=== PATIENT | female | born 1960 | race African-American/Black ===

== ENCOUNTER 2022-05-17 12:11 | Emergency (ER) | payer MEDICAID ==
[~2022-05-17] VITALS: Ht 177.8 cm; Wt 64.0 kg
[2022-05-17] MEDS: ALBUTEROL (0.083%) 2.5MG/3ML NEB HHN STA ×2 (12:18→13:21)
[2022-05-17] MEDS: IPRATROPIUM BROMIDE (0.02%) 0.5MG/2.5ML NEB HHN STA ×2 (12:18→13:21)
[2022-05-17] MEDS ORDERED: METHYLPREDNISOLONE SOD SUCC 125 MG/2 ML VIAL IV STA (12:34)
[2022-05-17 13:33] LABS: BASOPHILS % 0.4 % (0.0-2.0); HEMATOCRIT. 43.8 % (36.0-48.0); LYMPHOCYTES % 26.1 % (20.0-50.0); MEAN CORPUSCULAR VOLUME 93.3 fL (81.0-99.0); MEAN PLATELET VOLUME 7.3 fl (7.4-10.4); MONOCYTES % 10.9 % (2.0-8.0); NEUTROPHILS % 62.6 % (40.0-76.0); PLATELET 146 x1000/uL (130-400); RED BLOOD CELL COUNT 4.69 mill/uL (4.2-5.4); RED CELL DISTRIBUTION WIDTH 12.5 % (11.6-14.6)
[2022-05-17 14:03] LABS: CHLORIDE 101 mEq/L (98-107)
[2022-05-17] MEDS ORDERED: P50 MT (15:50)
[2022-05-17] MEDS ORDERED: ALBU6.7H3 INH (15:50)
[2022-05-17 15:53] VITALS: BP 131/85
== END 2022-05-17 16:00 | disposition home or self-care (01) ==
LOC: ER 12:11
DX: J44.9 Chronic obstructive pulmonary disease, unspecified (principal); F12.10 Cannabis abuse, uncomplicated; F17.210 Nicotine dependence, cigarettes, uncomplicated; Z20.822 Contact with and (suspected) exposure to COVID-19
CPT/HCPCS: 36415; 71045; 80053; 83880; 84484; 85025; 87426; 93005; 94640; 96374; 99285; C9803; J2930; Z7610

== ENCOUNTER 2023-08-29 07:56 | Inpatient (IN) | payer MEDICAID ==
[~2023-08-29] VITALS: Ht 172.7 cm; Wt 80.7 kg
[~2023-08-29 07:56] MED LIST: ALBU6.7H3 INH; P50 MT
[2023-08-29 08:39] LABS: HEMATOCRIT. 48.2 % (36.0-48.0); MEAN CORPUSCULAR HEMOGLOBIN 32.2 pg (28.0-32.0); MEAN CORPUSCULAR HGB CONC 33.2 g/dL (31.0-37.0); MEAN CORPUSCULAR VOLUME 96.8 fL (81.0-99.0); MEAN PLATELET VOLUME 7.1 fl (7.4-10.4); PLATELET 168 x1000/uL (130-400); RED BLOOD CELL COUNT 4.99 mill/uL (4.2-5.4); RED CELL DISTRIBUTION WIDTH 13.1 % (11.6-14.6); WHITE BLOOD COUNT 14.9 x1000/uL (4.5-11.0)
[2023-08-29 08:49] LABS: DIFFERENTIAL COMMENT 1
[2023-08-29] MEDS: METHYLPREDNISOLONE SOD SUCC 125MG/2ML (ACT-O-VIAL) IV STA (08:58)
[2023-08-29] MEDS: SODIUM CHLORIDE 0.9% 1,000 ML IV ONE (09:00)
[2023-08-29] MEDS: ALBUTEROL (0.083%) 2.5MG/3ML NEB HHN STA (09:14)
[2023-08-29 09:15] VITALS: PULSE 100; RESP 26; O2SAT 92
[2023-08-29] MEDS: IPRATROPIUM BROMIDE (0.02%) 0.5MG/2.5ML NEB HHN STA (09:15)
[2023-08-29 09:23] LABS: ALANINE AMINOTRANSFERASE 18 IU/L (10-49); ALBUMIN 4.6 g/dL (3.2-4.8); ASPARTATE AMINOTRANSFERASE 17 IU/L (<34); BILIRUBIN TOTAL 2.6 mg/dL (0.1-1.0); CALCIUM 9.7 mg/dL (8.7-10.4); CARBON DIOXIDE 22 mEq/L (21-32); CHLORIDE 99 mEq/L (98-107); CREATININE 1.2 mg/dL (0.6-1.0); GLUCOSE 127 mg/dL (70-105); POTASSIUM 3.8 mEq/L (3.5-5.1); PROTEIN TOTAL 8.1 g/dL (6.0-8.3); SODIUM 131 mEq/L (136-145); TROPONIN I HIGH SENSITIVITY 10 ng/L (3.0-34); UREA NITROGEN BLOOD 18 mg/dL (9-23)
[2023-08-29 09:25] LABS: PLATELET ESTIMATE NORMAL
[2023-08-29 09:55] LABS: INR 1.3; PROTHROMBIN TIME 13.9 sec (9.6-11.0)
[2023-08-29] MEDS: SODIUM CHLORIDE 0.9% 1000ML BAG (SEPSIS BOLUS) IV ONE (10:47)
[2023-08-29 10:53] LABS: TROPONIN I HIGH SENSITIVITY 10 ng/L (3.0-34)
[2023-08-29] MEDS: LEVOFLOXACIN 500MG PREMIX 100 ML IV ONE (10:57)
[2023-08-29] MEDS ORDERED: IPRATROPIUM/ALBUTEROL 0.5-3(2.5)MG/3ML NEB HHN PRN (12:45)
[2023-08-29] MEDS ORDERED: DOCUSATE SODIUM 100MG CAPSULE PO PRN (12:45)
[2023-08-29] MEDS: LACTATED RINGERS 1,000 ML IV SCH (12:55)
[2023-08-29 12:56] VITALS: BP 121/65; PULSE 100; RESP 20; TEMP 98.4
[2023-08-29 13:42] LABS: BG BASE EXCESS -2.3 mmol/L (-2.0-2.0); BG CARBOXYHEMOGLOBIN 0.1 % (0.5-1.5); BG DEOXYHEMOGLOBIN 1.5 % (0.0-5.0); BG FRACTION INSPIRED OXYGEN 32; BG HCO3 ACT 20.7 mmol/L (22.0-26.0); BG METHEMOGLOBIN 0.3 % (0.0-1.5); BG OXYGEN SATURATION 98.5 % (92.0-98.5); BG OXYHEMOGLOBIN 98.1 % (94.0-97.0); BG PCO2 31.1 mmHg (35.0-45.0); BG PH 7.441 (7.350-7.450); BG SAMPLE SITE RIGHT RADIAL; BG TOTAL HEMOGLOBIN 14.7 g/dL (12.0-18.0); BG VENT MODE NASAL CANNULA
[2023-08-29] MEDS: ASPIRIN 325MG EC TABLET PO SCH (14:09)
[2023-08-29] MEDS: ENOXAPARIN 40MG/0.4ML SYR SUBCUT SCH (14:10)
[2023-08-29] MEDS: FAMOTIDINE 20MG/2ML VIAL IV SCH (14:10)
[2023-08-29 14:22] VITALS: BP 121/65; PULSE 100; RESP 20; TEMP 98.4
[2023-08-29 16:00] VITALS: BP 146/84; PULSE 83; RESP 20; TEMP 97.9
[2023-08-29 16:51] LABS: D-DIMER 2.63 mg/L FEU (<0.50); INR 1.3; PROTHROMBIN TIME 13.8 sec (9.6-11.0)
[2023-08-29 17:37] LABS: HEPATITIS B SURFACE ANTIGEN NEGATIVE (Negative); HEPATITIS C AB NON REACTIVE (Neg) (Negative)
[2023-08-29 20:00] VITALS: BP 117/67; PULSE 84; RESP 20; TEMP 96.7
[2023-08-30] VITALS (10 sets, daily range): BP systolic 118–126; BP diastolic 50–75; PULSE 69–95; RESP 18–25; TEMP 97.2–98.7; O2SAT 93–98
[2023-08-30] MEDS: IPRATROPIUM/ALBUTEROL 0.5-3(2.5)MG/3ML NEB HHN SCH (00:54)
[2023-08-30 02:05] LABS: CLARITY URINE CLEAR (CLEAR); COLOR URINE YELLOW (YELLOW); GLUCOSE URINE NEGATIVE (NEGATIVE); KETONES URINE NEGATIVE (NEGATIVE); LEUKOCYTE ESTERASE URINE NEGATIVE (NEGATIVE); NITRITE URINE NEGATIVE (NEGATIVE); OCCULT BLOOD URINE 2+ (NEGATIVE); PROTEIN URINE 2+ (NEGATIVE); SPECIFIC GRAVITY URINE 1.019 (1.005-1.030)
[2023-08-30 02:29] LABS: *AMPHETAMINES SCREEN URINE NEGATIVE (NEGATIVE); *BARBITURATES SCREEN URINE NEGATIVE (NEGATIVE); *BENZODIAZEPINES SCREEN URINE NEGATIVE (NEGATIVE); *COCAINE SCREEN URINE PRESUMPTIVE POSITIVE (NEGATIVE); CANNABINOID URINE SCREEN NEGATIVE (NEGATIVE); ECSTASY MDMA SCREEN URINE NEGATIVE (NEGATIVE); METHADONE URINE SCREEN Neg (NEGATIVE); OPIATES URINE SCREEN NEGATIVE (NEGATIVE); PHENCYCLIDINE URINE SCREEN NEGATIVE (NEGATIVE)
[2023-08-30 03:14] LABS: SODIUM URINE RANDOM < 10 mEq/L
[2023-08-30 05:01] LABS: OSMOLALITY URINE 542 mOsm/kg (500-850)
[2023-08-30 05:20] LABS: BACTERIA URINE NONE SEEN; FINE GRANULAR CASTS URINE 0-5 /lpf; RBC URINE 0-2 /hpf (0-2); SQUAMOUS EPITHELIAL CELL URINE FEW /lpf (RARE/1+); WBC URINE 0-2 /hpf (0-2)
[2023-08-30 07:49] LABS: HEMATOCRIT. 42.1 % (36.0-48.0); HEMOGLOBIN. 14.3 g/dL (12.0-16.0); MEAN CORPUSCULAR HEMOGLOBIN 31.7 pg (28.0-32.0); MEAN CORPUSCULAR VOLUME 93.4 fL (81.0-99.0); MEAN PLATELET VOLUME 8.4 fl (7.4-10.4); PLATELET 167 x1000/uL (130-400); RED BLOOD CELL COUNT 4.51 mill/uL (4.2-5.4); RED CELL DISTRIBUTION WIDTH 13.1 % (11.6-14.6); WHITE BLOOD COUNT 18.1 x1000/uL (4.5-11.0)
[2023-08-30 08:59] LABS: DIFFERENTIAL COMMENT 1
[2023-08-30] MEDS: LEVOFLOXACIN 750MG PREMIX 150 ML IV SCH (13:14)
[2023-08-30] MEDS: METHYLPREDNISOLONE SOD SUCC 40MG/ML (ACT-O-VIAL) IV SCH (13:15)
[2023-08-30 17:37] LABS: CALCIUM 8.9 mg/dL (8.7-10.4); CARBON DIOXIDE 23 mEq/L (21-32); CHLORIDE 106 mEq/L (98-107); GLUCOSE 160 mg/dL (70-105); POTASSIUM 4.3 mEq/L (3.5-5.1); SODIUM 137 mEq/L (136-145); UREA NITROGEN BLOOD 29 mg/dL (9-23)
[2023-08-30 21:36] LABS: PLATELET ESTIMATE NORMAL
[2023-08-31] VITALS (10 sets, daily range): BP systolic 106–154; BP diastolic 56–89; PULSE 74–92; RESP 18–20; TEMP 97.7–99.7; O2SAT 97–98
[2023-08-31 07:07] LABS: CALCIUM 9.2 mg/dL (8.7-10.4); CARBON DIOXIDE 24 mEq/L (21-32); CHLORIDE 105 mEq/L (98-107); GLUCOSE 165 mg/dL (70-105); POTASSIUM 4.2 mEq/L (3.5-5.1); SODIUM 138 mEq/L (136-145); UREA NITROGEN BLOOD 28 mg/dL (9-23)
[2023-08-31 07:16] LABS: HEMATOCRIT. 39.6 % (36.0-48.0); HEMOGLOBIN. 13.5 g/dL (12.0-16.0); MEAN CORPUSCULAR HEMOGLOBIN 31.7 pg (28.0-32.0); MEAN CORPUSCULAR VOLUME 93.3 fL (81.0-99.0); MEAN PLATELET VOLUME 8.3 fl (7.4-10.4); PLATELET 184 x1000/uL (130-400); RED BLOOD CELL COUNT 4.24 mill/uL (4.2-5.4); RED CELL DISTRIBUTION WIDTH 13.2 % (11.6-14.6); WHITE BLOOD COUNT 13.4 x1000/uL (4.5-11.0)
[2023-08-31 07:40] LABS: DIFFERENTIAL COMMENT 1
[2023-08-31 10:00] LABS: BILIRUBIN DIRECT 0.2 mg/dL (<=3.0); BILIRUBIN TOTAL 0.4 mg/dL (0.1-1.0); LACTIC ACID 2.7 mmol/L (0.4-2.0)
[2023-08-31] MEDS: ACETAMINOPHEN 325MG TABLET PO PRN (10:47)
[2023-08-31 13:35] LABS: *AMPHETAMINES SCREEN URINE NEGATIVE (NEGATIVE); *BARBITURATES SCREEN URINE NEGATIVE (NEGATIVE); *BENZODIAZEPINES SCREEN URINE NEGATIVE (NEGATIVE); *COCAINE SCREEN URINE PRESUMPTIVE POSITIVE (NEGATIVE); ECSTASY MDMA SCREEN URINE NEGATIVE (NEGATIVE); METHADONE URINE SCREEN NEGATIVE (NEGATIVE); OPIATES URINE SCREEN NEGATIVE (NEGATIVE)
[2023-08-31 13:36] LABS: CANNABINOID URINE SCREEN NEGATIVE (NEGATIVE); PHENCYCLIDINE URINE SCREEN NEGATIVE (NEGATIVE)
[2023-08-31 20:06] LABS: PLATELET ESTIMATE NORMAL
[2023-09-01] VITALS (7 sets, daily range): BP systolic 116–156; BP diastolic 72–98; PULSE 63–88; RESP 18–20; TEMP 97.2–98.8; O2SAT 97
[2023-09-01] MEDS: ONDANSETRON HCL 4MG/2ML INJ IV PRN (00:43)
[2023-09-01 08:08] LABS: BASOPHILS % 0.2 % (0.0-2.0); DIFFERENTIAL COMMENT 0; HEMATOCRIT. 42.5 % (36.0-48.0); HEMOGLOBIN. 14.3 g/dL (12.0-16.0); LYMPHOCYTES % 10.6 % (20.0-50.0); MEAN CORPUSCULAR HEMOGLOBIN 31.5 pg (28.0-32.0); MEAN CORPUSCULAR HGB CONC 33.6 g/dL (31.0-37.0); MEAN CORPUSCULAR VOLUME 93.7 fL (81.0-99.0); MEAN PLATELET VOLUME 8.1 fl (7.4-10.4); MONOCYTES % 7.5 % (2.0-8.0); NEUTROPHILS % 81.7 % (40.0-76.0); PLATELET 202 x1000/uL (130-400); RED BLOOD CELL COUNT 4.54 mill/uL (4.2-5.4); RED CELL DISTRIBUTION WIDTH 13.2 % (11.6-14.6); WHITE BLOOD COUNT 8.5 x1000/uL (4.5-11.0)
[2023-09-01 08:34] LABS: CALCIUM 9.1 mg/dL (8.7-10.4); CARBON DIOXIDE 28 mEq/L (21-32); CHLORIDE 105 mEq/L (98-107); CREATININE 0.9 mg/dL (0.6-1.0); GLUCOSE 131 mg/dL (70-105); POTASSIUM 4.5 mEq/L (3.5-5.1); SODIUM 138 mEq/L (136-145); UREA NITROGEN BLOOD 23 mg/dL (9-23)
[2023-09-01] MEDS: GUAIFENESIN 200MG/10ML SUGAR FREE UDC PO PRN (13:10)
[2023-09-02 04:00] VITALS: BP 131/90; PULSE 70; RESP 18; TEMP 96.9
[2023-09-02 06:58] LABS: BASOPHILS % 0.3 % (0.0-2.0); DIFFERENTIAL COMMENT 0; HEMATOCRIT. 43.7 % (36.0-48.0); HEMOGLOBIN. 15.2 g/dL (12.0-16.0); MEAN CORPUSCULAR HEMOGLOBIN 32.2 pg (28.0-32.0); MEAN CORPUSCULAR HGB CONC 34.7 g/dL (31.0-37.0); MEAN CORPUSCULAR VOLUME 92.7 fL (81.0-99.0); MEAN PLATELET VOLUME 8.1 fl (7.4-10.4); NEUTROPHILS % 77.7 % (40.0-76.0); PLATELET 245 x1000/uL (130-400); RED BLOOD CELL COUNT 4.72 mill/uL (4.2-5.4); RED CELL DISTRIBUTION WIDTH 12.9 % (11.6-14.6)
[2023-09-02 07:09] LABS: CALCIUM 8.9 mg/dL (8.7-10.4); CARBON DIOXIDE 26 mEq/L (21-32); CHLORIDE 104 mEq/L (98-107); CREATININE 0.9 mg/dL (0.6-1.0); GLUCOSE 131 mg/dL (70-105); POTASSIUM 4.4 mEq/L (3.5-5.1); SODIUM 135 mEq/L (136-145); UREA NITROGEN BLOOD 27 mg/dL (9-23)
[2023-09-02 08:00] VITALS: BP 148/88; PULSE 62; RESP 18; TEMP 98.1
[2023-09-02] MEDS ORDERED: P20 MT (09:48)
[2023-09-02] MEDS ORDERED: ALBU6.7H15 INH (09:48)
[2023-09-02] MEDS: LEVOFLOXACIN 500MG TABLET PO SCH (11:49)
[2023-09-02 12:00] VITALS: BP 146/87; PULSE 70; RESP 18; TEMP 97.5
[2023-09-02 14:34] VITALS: BP 139/76; PULSE 75; TEMP 97.7; O2SAT 97
== END 2023-09-02 16:07 | disposition home or self-care (01) | DRG 720 ==
LOC: ER 07:56 → 7EST 10:44 → EDBEDREQTM 10:45 → EDBEDREQ 10:45 → 7EST 09-01 17:15
PROVIDERS: ADMIT Internal Medicine; ATTEND Internal Medicine
DX: A41.9 Sepsis, unspecified organism (principal); J96.01 Acute respiratory failure with hypoxia; N17.9 Acute kidney failure, unspecified; E87.1 Hypo-osmolality and hyponatremia; J18.9 Pneumonia, unspecified organism; J44.0 Chronic obstructive pulmonary disease with (acute) lower respiratory infection; J44.1 Chronic obstructive pulmonary disease with (acute) exacerbation; Z90.710 Acquired absence of both cervix and uterus; Z96.649 Presence of unspecified artificial hip joint; Z79.82 Long term (current) use of aspirin; Z79.899 Other long term (current) drug therapy; Z96.659 Presence of unspecified artificial knee joint; Z20.822 Contact with and (suspected) exposure to COVID-19
CPT/HCPCS: 36415; 36600; 71045; 80048; 80053; 80061; 80305; 81003; 82247; 82248; 82375; 82805; 83036; 83605; 83880; 83930; 83935; 84145; 84300; 84443; 84484; 85025; 85379; 86705; 87340; 87426; 93005; 93970; 94640; 94644; 99291; C1893; J1650; J1956; J2405; J2920; J2930; J3490; J7030; J7120